=== PATIENT | female | born 1965 | race American Indian/Alaskan Native ===

== ENCOUNTER 2016-09-28 09:32 | Emergency (ER) | payer OTHER ==
[2016-09-28 09:41] VITALS: BP 160/86; PULSE 78; RESP 20; TEMP 98.4; O2SAT 98
[2016-09-28] MEDS ORDERED: Lidocaine 5% Patch TD STA (10:01)
--- NOTE | 2016-09-28 10:04 | C.PDOC ---
History Of Present Illness 51 y/o female presents to the ED for evaluation of lower back pain which began around 3 days ago. Patient notes onset of symptoms after bending over. She notes pain is localized to b/l lower back and worsens when she tries to stand upright. Patient was evaluated by PMD for same complaint. On 09/26, she was prescribed Baclofen but found no relief with one dose. She denies trauma or other associated symptoms. NEW ONSET LBP X 3 DAYS. ONSET AFTER AWKWARD BENDING OVER. LOCALIZED B/L LOWER BACK WORSE WHEN TRIES TO STAND UPRIGHT. SAW PMD FOR SAME. 09/26, GIVEN BACLOFEN BUT NO RELIEF X 1 DOSE. NO TRAUMA, OTHER ASSOC SX EXAM MILD DIST NONTOXIC BACK LIMITED FULL EXTENSION DUE OT PAIN. +B/L LOWER SPASM W LOCAL TEND. NO LS TEND. NEURO INTACT Time Seen by Provider: 09/28/16 09:53 Chief Complaint (Nursing): Back Pain History Per: Patient History/Exam Limitations: no limitations Onset/Duration Of Symptoms: Days (3) Current Symptoms Are (Timing): Still Present Quality Of Discomfort: "Pain" Previous Symptoms: Back Pain Associated Symptoms: denies: Incontinence, New Weakness, New Numbness Exacerbating Factor(s): Standing (upright) Additional History Per: Patient Past Medical History Reviewed: Historical Data, Nursing Documentation, Vital Signs Vital Signs: Last Vital Signs Temp 98.4 F 09/28/16 09:40 Pulse 78 09/28/16 09:40 Resp 20 09/28/16 09:40 BP 160/86 H 09/28/16 09:40 Pulse Ox 98 09/28/16 10:04 - Medical History PMH: No Chronic Diseases Surgical History: Appendectomy Family History: States: Unknown Family Hx - Social History Hx Alcohol Use: No Hx Substance Use: No - Immunization History Hx Tetanus Toxoid Vaccination: No Hx Influenza Vaccination: No Hx Pneumococcal Vaccination: No Review Of Systems Except As Marked, All Systems Reviewed And Found Negative. Constitutional: Negative for: Fever, Chills Genitourinary: Negative for: Incontinence Musculoskeletal: Positive for: Back Pain Neurological: Negative for: Weakness, Numbness Physical Exam - Physical Exam Appears: Non-toxic, Other (+mild distress ) Skin: Normal Color, Warm, Dry Head: Atraumatic Eye(s): bilateral: Normal Inspection Oral Mucosa: Moist Neck: Supple Chest: Symmetrical, No Deformity, No Tenderness Back: No Vertebral Tenderness (lumbar spine ), Decreased ROM (limited full extension secondary to pain ), Muscle Spasm (b/l lower spasm with localized tenderness) Extremity: Normal ROM, Capillary Refill (less than 2 seconds ) Neurological/Psych: Oriented x3, Normal Speech, Normal Cognition Gait: Steady ED Course And Treatment O2 Sat by Pulse Oximetry: 98 (on RA) Pulse Ox Interpretation: Normal Progress Note: Patient received Flexeril PO, Lidoderm TD, and Toradol IM. Disposition Counseled Patient/Family Regarding: Diagnosis, Need For Followup, Rx Given - Disposition Referrals: YOUR,PMD [Other] Disposition: HOME/ ROUTINE Disposition Time: 10:03 Condition: IMPROVED Prescriptions: Cyclobenzaprine [Flexeril] 10 mg PO TID #15 tab Ibuprofen [Motrin] 600 mg PO Q6 #30 tab Lidocaine 5% [Lidoderm] 1 ea TD PRN PRN #10 patch PRN Reason: Pain, Moderate (4-7) Instructions: Back Pain (ED) - Clinical Impression Clinical Impression: Low back strain - Scribe Statement The provider has reviewed the documentation as recorded by the Scribe (Orly Cummins) Provider Attestation: All medical record entries made by the Scribe were at my direction and personally dictated by me. I have reviewed the chart and agree that the record accurately reflects my personal performance of the history, physical exam, medical decision making, and the department course for this patient. I have also personally directed, reviewed, and agree with the discharge instructions and disposition.
[2016-09-28] MEDS ORDERED: Lidocaine 5% Patch TD ONE (10:08)
== END 2016-09-28 10:24 | disposition home or self-care (01) ==
LOC: C.ER 09:32
DX: S39.012A Strain of muscle, fascia and tendon of lower back, initial encounter (principal); X58.XXXA Exposure to other specified factors, initial encounter; Y92.9 Unspecified place or not applicable
CPT/HCPCS: 96372; 99283; J1885